=== PATIENT | female | born 1960 | race Caucasian/White ===

== ENCOUNTER → 2018-06-13 | Outpatient (CLI) | payer OTHER ==
[~2018-06-13] MED LIST: COLACE 100100 MG/CAP PO; LEVAQUIN 5500 MG/TA1 PO; NORVASC2.5 MG; PERCOCET 325 MG1 TA2 PO; ROXICODONE 55 MG/TAB PO; ZESTRIL 10MG10 MG PO
== END ==
LOC: COL.VAS 13:07
DX: Z13.6 Encounter for screening for cardiovascular disorders (principal); M79.605 Pain in left leg; N20.0 Calculus of kidney; Z96.0 Presence of urogenital implants

== ENCOUNTER → 2018-08-28 | Outpatient (CLI) | payer OTHER | LOC: ZCOL.LAB 13:46 | DX: I82.409 Acute embolism and thrombosis of unspecified deep veins of unspecified lower extremity (principal); R07.89 Other chest pain ==

== ENCOUNTER → 2018-08-28 | Outpatient (CLI) | payer OTHER | LOC: COL.RAD 16:10 | DX: K80.20 Calculus of gallbladder without cholecystitis without obstruction (principal); N28.9 Disorder of kidney and ureter, unspecified; R79.89 Other specified abnormal findings of blood chemistry | CPT/HCPCS: Q9967 ==

== ENCOUNTER 2019-02-06 08:31 | Day surgery (SDC) | payer OTHER ==
[~2019-02-06] VITALS: Ht 162.6 cm; Wt 71.7 kg
[2019-02-06 08:49] VITALS: BP 111/76; PULSE 79; TEMP 97.2
[2019-02-06] MEDS ORDERED: PRINIVIL40 MG PO (08:54)
[2019-02-06] MEDS ORDERED: NEXIUM 40MG40 MG PO (08:54)
[2019-02-06] MEDS ORDERED: MICROZIDE12.5 MG PO (08:55)
[2019-02-06 10:00] VITALS: BP 110/66; PULSE 79; TEMP 97.7
--- NOTE | 2019-02-06 10:00 | NUR ---
The patient arrived back to [facility] at this time. The patient appears drowsy but arouses easily to her name. The patient ambulated from the cart to the recliner in her room with the stand by assistance of two nurses and appeared to tolerate the activity well. Post procedure vital signs were started at this time. Call light is within reach. Will continue to monitor the patient.
[2019-02-06 10:15] VITALS: BP 100/66; PULSE 67
--- NOTE | 2019-02-06 10:15 | NUR ---
The patient appears to be resting quietly in the recliner with her eyes closed at this time. Vital signs appear stable at this time. The patient denies wanting anything to eat or drink at this time. Will continue to monitor the patient.
[2019-02-06 10:35] VITALS: BP 93/60; PULSE 65
--- NOTE | 2019-02-06 10:35 | NUR ---
The patient appears to be resting quietly with her eyes closed at this time. Respirations even and unlabored. Call light is within reach. Will continue to monitor the patient.
[2019-02-06 10:55] VITALS: BP 94/63; PULSE 69
--- NOTE | 2019-02-06 10:55 | NUR ---
The patient appears more alert at this time. The patient requests to try some water at this time. The patient's vital signs continue to appear stable. The patient's sister was called to come back to pick the patient up for discharge. Will continue to monitor the patient.
[2019-02-06 11:15] VITALS: BP 106/67; PULSE 70
--- NOTE | 2019-02-06 11:20 | NUR ---
The patient has finished her water and voices a desire to be disharged home. Discharge instructions were reviewed with the patient at this time and questions were answered. The patient's IV to her right forearm was removed and a pressure dressing was applied to the site. The nurse instructed the patient to get dressed and notify the staff when she is ready to be escorted out.
--- NOTE | 2019-02-06 11:24 | NUR ---
The patient ambulated out to a private vehicle using a steady gait escorted by CLARISSA Diaz. The patient's belongings and discharge paperwork were sent with her. The patient's sister is present to drive her home.
== END 2019-02-06 11:24 | disposition home or self-care (01) ==
LOC: SDCO 08:31
DX: K31.7 Polyp of stomach and duodenum (principal); K29.50 Unspecified chronic gastritis without bleeding; K44.9 Diaphragmatic hernia without obstruction or gangrene; K22.70 Barrett's esophagus without dysplasia; Z79.82 Long term (current) use of aspirin; Z79.899 Other long term (current) drug therapy; Z86.718 Personal history of other venous thrombosis and embolism; Z87.442 Personal history of urinary calculi; Z90.49 Acquired absence of other specified parts of digestive tract; Z80.0 Family history of malignant neoplasm of digestive organs
CPT/HCPCS: J2250; J3010; J7030

== ENCOUNTER 2019-04-10 10:28 | Day surgery (SDC) | payer OTHER ==
[~2019-04-10] VITALS: Ht 162.6 cm; Wt 72.9 kg
[2019-04-10] VITALS (10 sets, daily range): BP systolic 102–149; BP diastolic 53–86; PULSE 66–89; TEMP 97.7–98.1
[~2019-04-10 10:28] MED LIST changes: +MICROZIDE12.5 MG PO; +NEXIUM 40MG40 MG PO; +PRINIVIL40 MG PO
[2019-04-10] MEDS ORDERED: ASPIRIN 81M81 MG/TA2 PO (11:47)
--- NOTE | 2019-04-10 15:57 | NUR ---
PT TO ROOM 322-2 PER BED WITH CORY ROMO PACU GIVING BEDSIDE REPORT @ 1540 PT IS DROWSEY BUT AROUSEABLE. SISTER AT BEDSIDE. VSS, LAP SITES CDI CLOSED WITH SWIFTSET. PT DENIES NEEDS.
--- NOTE | 2019-04-10 16:56 | NUR ---
PT UP TO RECLINER REPOSITIONED FOR COMFORT.
--- NOTE | 2019-04-10 17:54 | NUR ---
PT SITTING UP IN RECLINER, DENIES NEEDS. CLEAR LIQUID TRAY FOR DINNER.
--- NOTE | 2019-04-10 20:15 | NUR ---
Pt up to chair. No distress noted. Pt reports discomfort in abdomen, but denies need for pain medication. Abdomen is soft, but distended. BS audible. Pt is passing flatus, but no BM yet. Lap sites x6 closed with swiftset. Edges well approximated. Lungs clear to auscultation. Respirations even and unlabored. Pt ate most of her CL dinner without difficulty. Helped up to bathroom and ambulated in halls. Gait is steady. No complaints. Pt back to bed. Denies needs at this time. Will continue to monitor.
--- NOTE | 2019-04-10 23:33 | NUR ---
Pt reported pain at HS but refused a pain pill stating "I will call when I'm ready". Pt fell asleep at awoke at 2330 in "excruiating" pain. Upon assessment, pain is writhing, guarding and moaning. She ambulates to the [facility] to void and back to bed with assistance. She is rating her pain 10/10. PRN pain medication given IV due to high level of pain. She is educated that she needs to take medication before pain gets to this level.
--- NOTE | 2019-04-11 00:15 | NUR ---
Pt reports pain relief. Rating pain 3/10.
[2019-04-11 03:42] VITALS: BP 112/63; PULSE 79; TEMP 98.3
--- NOTE | 2019-04-11 03:48 | NUR ---
Pt reports that her pain is starting to increase again. PRN PO pain medication given.
[2019-04-11 04:18] VITALS: BP 111/52
--- NOTE | 2019-04-11 05:45 | NUR ---
Pt resting in bed this AM. Reports that her she has abdominal "discomfort", but the pain has subsided. Pt has been up to the bathroom several times tonight and also ambulated in the halls. Pain kept under control except for initial period of acute pain that was treated with IV pain medication.
[2019-04-11 07:14] LABS: BASO % 0.1 % (0.0-2.0); GRAN # 12.6 (1.4-6.5); GRAN % 87.9 % (42.2-75.2); HEMOGLOBIN 12.1 g/dl (12.5-16.0); LYMPH # 0.9 (1.2-3.4); LYMPH % 6.4 % (20.0-51.0); MEAN CELL VOLUME 92 fl (80.0-100.0); MEAN CORPUSCULAR HEMOGLOBIN 30 pg (27.0-31.0); MEAN CORPUSCULAR HGB CONC 33 g/dl (33.0-37.0); MEAN PLATELET VOLUME 10.2 fl (7.4-10.4); MONO # 0.7 (0.1-0.6); PLATELET COUNT 234 K/mm3 (130-400); REDCELL DISTRIBUTION WIDTH-CV 13.4 % (11.5-14.5)
[2019-04-11 07:21] LABS: HEMATOCRIT 36.9 % (37.0-47.0)
[2019-04-11 07:26] LABS: ALBUMIN 3.7 gm/dL (3.5-5.0); CALCIUM 9.1 mg/dL (8.4-10.2); CREATININE, serum 0.8 (0.52-1.25); PHOSPHOROUS 4.7 mg/dL (2.5-4.5); POTASSIUM 3.8 mmol/L (3.4-5.0)
[2019-04-11 08:28] VITALS: BP 121/64; PULSE 74; TEMP 98.8
--- NOTE | 2019-04-11 09:42 | NUR ---
AM ASSESSMENT COMPLETED. A/O X4. REPORTS MODERATE PAIN ABDOMINAL PAIN WITH ANY MOVEMENT. BS ACTIVE IN ALL QUADRANTS. ALL 6 LAP SITES INTACT WITH DERMABOND. AMBULATED IN HALLWAY X 10 MINUETS WITH STAND BY ASSIST. SEE [facility] FOR MEDICATINS ADMINISTERED.
[2019-04-11] MEDS ORDERED: NEURONTIN100 MG/CAP PO (10:52)
[2019-04-11] MEDS ORDERED: PERCOCET 325 MG1 TA2 PO (10:52)
[2019-04-11] MEDS ORDERED: MOTRIN 600600 MG/TAB PO (10:52)
[2019-04-11] MEDS ORDERED: ZOFRAN ODT4 MG PO (10:53)
[2019-04-11] MEDS ORDERED: COLACE 100100 MG/CAP PO (10:53)
--- NOTE | 2019-04-11 11:09 | NUR ---
DC ORDER RECEIVED FROM DR ACEVEDO. PATIENT AGRREABLE AND EAGER TO LEAVE. TO COMPLETE DC PROCESS. SISTER TO TRANSFER HOME.
[2019-04-11 11:41] VITALS: BP 118/59; PULSE 66; TEMP 98.6
--- NOTE | 2019-04-11 13:53 | NUR ---
PATIENT DC TO HOME @ 1246 ACCOMPANIED BY SISTER OFFICIAL GREETER. PRINTED DC INSTRUCTIONS TO INCLUDE F/U, MEDICATIONS,DIET, AND ACTIVITY. VERBALIZES UNDERSTANDING AND DENIES QUESTIONS OR CONCERNS AFTER REVIEW. PRINTED SCRIPTS FOR ZOFRAN, GAPABENTIN, MOTRIN, AND PERCOCET SENT WITH PATIENT. PATIENT DC FROM [facility] ACCOMPANIED BY [facility] STAFF.
== END 2019-04-11 12:46 ==
LOC: SDCO 10:28 → SURG 10:28 → SDCO 12:45 → SURG 15:30 → SDCO 04-11 12:46
PROVIDERS: Surgery
DX: K22.70 Barrett's esophagus without dysplasia (principal); K44.9 Diaphragmatic hernia without obstruction or gangrene; I10 Essential (primary) hypertension; J45.909 Unspecified asthma, uncomplicated; Z79.899 Other long term (current) drug therapy; Z79.82 Long term (current) use of aspirin; Z86.718 Personal history of other venous thrombosis and embolism; Z87.442 Personal history of urinary calculi
CPT/HCPCS: OP; J0690; J1100; J1170; J1650; J1885; J2405; J2704; J3010; J7120

== ENCOUNTER 2019-10-17 09:11 | Emergency (ER) | payer OTHER ==
[~2019-10-17] VITALS: Ht 162.6 cm; Wt 67.3 kg
[~2019-10-17 09:11] MED LIST changes: +ASPIRIN 81M81 MG/TA2 PO; +MOTRIN 600600 MG/TAB PO; +NEURONTIN100 MG/CAP PO; +ZOFRAN ODT4 MG PO
[2019-10-17 09:18] VITALS: TEMP 98.8
[2019-10-17 09:53] LABS: BASO % 0.6 % (0.0-2.0); EOS # 0.2 (0.0-0.7); EOS % 2.9 % (0-4.0); GRAN # 3.2 (1.4-6.5); GRAN % 58.5 % (42.2-75.2); HEMATOCRIT 42.4 % (37.0-47.0); HEMOGLOBIN 13.9 g/dl (12.5-16.0); LYMPH # 1.8 (1.2-3.4); LYMPH % 32.6 % (20.0-51.0); MEAN CELL VOLUME 92 fl (80.0-100.0); MEAN CORPUSCULAR HEMOGLOBIN 30 pg (27.0-31.0); MEAN CORPUSCULAR HGB CONC 33 g/dl (33.0-37.0); MEAN PLATELET VOLUME 9.6 fl (7.4-10.4); MONO # 0.3 (0.1-0.6); MONO % 5.2 % (1.7-9.3); PLATELET COUNT 231 K/mm3 (130-400); RED BLOOD COUNT 4.62 M/mm3 (4.10-5.30); REDCELL DISTRIBUTION WIDTH-CV 12.6 % (11.5-14.5)
[2019-10-17 09:58] LABS: ALBUMIN 4.5 gm/dL (3.5-5.0); BILIRUBIN,TOTAL 0.4 mg/dL (0.0-1.0); CALCIUM 9.8 mg/dL (8.4-10.2); CREATININE, serum 0.75 (0.52-1.25); POTASSIUM 4.2 mmol/L (3.4-5.0); TOTAL PROTEIN 7.8 gm/dL (6.4-8.2)
[2019-10-17 10:19] LABS: COLLECTION METHOD CLEAN CATCH
[2019-10-17 10:29] LABS: PH 7 (5-8); SQUAMOUS EPITHELIAL None Seen /hpf; URINE APPEARANCE Clear; URINE BACTERIA Rare /hpf; URINE BILIRUBIN Negative (NEGATIVE); URINE BLOOD Negative (NEGATIVE); URINE COLOR Straw; URINE GLUCOSE Negative (NEGATIVE); URINE KETONE Negative (NEGATIVE); URINE LEUKOCYTE ESTERASE Negative (NEGATIVE); URINE NITRATE Negative (NEGATIVE); URINE PROTEIN(semi-quant) Negative (NEGATIVE); URINE RBC 0-2 /hpf; URINE UROBILINOGEN Negative (NEGATIVE)
[2019-10-17] MEDS ORDERED: NAPROSYN 2250 MG/TAB PO (11:31)
[2019-10-17] MEDS ORDERED: NORCO 325 MG-51 TAB PO (11:31)
[2019-10-17 12:38] VITALS: BP 104/63; PULSE 65
== END 2019-10-17 12:39 | disposition home or self-care (01) ==
LOC: COL.ER 09:11
PROVIDERS: Emergency Medicine
DX: D25.9 Leiomyoma of uterus, unspecified (principal); K82.8 Other specified diseases of gallbladder; Z79.82 Long term (current) use of aspirin
CPT/HCPCS: J1170; J1885; J2405; J7030; Q9967

== ENCOUNTER 2019-10-31 05:23 | Inpatient (IN) | payer OTHER ==
[2019-10-31] VITALS (10 sets, daily range): BP systolic 123–146; BP diastolic 63–78; PULSE 65–84; TEMP 97.4–99.3
[~2019-10-31] VITALS: Ht 162.6 cm; Wt 68.2 kg
[~2019-10-31 05:23] MED LIST changes: +NAPROSYN 2250 MG/TAB PO; +NORCO 325 MG-51 TAB PO
--- NOTE | 2019-10-31 11:00 | NUR ---
PATIENT ADMITED INTO ROOM 350 POST OP OPEN JULISA. RIGHT ABD INCISION IS CD&I AND CLOSED WITH GARTH. ABD LAP SITES X2 CD&I WITH SWIFTSET. DILAUDID VEGETABLE INSPECTOR INPLACE FOR PAIN MANAGEMENT. PATIENT HAVING MOD ABD PAIN BUT DROWSY. VSS. ABD IS DISTENDED, SOFT AND WITH POSITIVE BOWL SOUNDS. NO C/O N/V. IV FLUIDS INFUSING VIA PUMP INTO LEFT WRIST. HEAD TO TOE ASSESSMENT WNL. CALL LIGHT IN REACH.
--- NOTE | 2019-10-31 20:30 | NUR ---
PT ASSISTED TO BATHROOM TO VOID. HAD DIFFICULTY GETTING OUT OF BED, WAS ABLE TO VOID 400CC OF [place] URINE. BACK TO BED WITH MINIMAL ASSIST. REPORTS MILD NAUSEA WITH MOVEMENT. ABDOMEN DISTENDED, HYPOACTIVE BOWEL SOUNDS. DRSG TO RIGHT ABD D/I. HAS KNITTER OPERATOR DILAUDID FOR PAIN CONTROL, PCO2=46. IV SITE TO LEFT WRIST WITHOUT REDNESS OR SWELLING. T=99.2.
[2019-11-01] VITALS (15 sets, daily range): BP systolic 110–139; BP diastolic 59–84; PULSE 67–86; TEMP 98.1–99.3
--- NOTE | 2019-11-01 | NUR ---
Using GLAZE CARRIER as needed for pain, rates pain 7/10, encouraged to use medication before pain is excessive, verbalized understanding.
--- NOTE | 2019-11-01 02:00 | NUR ---
Pt resting quietly. Denies need to use the bathroom at this time.
--- NOTE | 2019-11-01 04:00 | NUR ---
Assisted to bathroom, transfers better out of bed than previously. Voids and back to bed. Is NPO for ERCP this AM.
--- NOTE | 2019-11-01 06:11 | NUR ---
Consent signed for ERCP.
--- NOTE | 2019-11-01 09:48 | NUR ---
PATIENT UP TO THE BATHROOM VOIDED & PATIENT TAKEN TO OR WITH CEM TRANSPORTER.
--- NOTE | 2019-11-01 12:21 | NUR ---
Patient resting in bed. Pain elevated since return from procedure. Patient reports her pain is in her abdomen & radiating into her back. Iv dilaudid singer and unloader hooked back up, did give patient a bolus dose to assist with pain management. Vss on O2. Scds ble. Right upper abdomen dressing CDI.
--- NOTE | 2019-11-01 13:19 | NUR ---
ROSINA met with the patient to complete initial intake. The patient lives in [place] with her sister, Sabrina. The patient denies DME use and is independent with ADLs. The patient's PCP is Dr. Rodriguez and patient receives medications from [facility] in [place]. The patient does not have advanced directives in the EMR but was interested in DPOA-HC form. Form provided. The patient plans to return home at discharge with Sabrina providing transportation. There are no additional needs at this time.
--- NOTE | 2019-11-01 19:14 | NUR ---
Patient resting in bed. She has been up to the bathroom & voided. Vss on room air. Pain better managed at this time. She has had nausea, Zofran Prn. Minimal interest in food. She has only had a jello & sips of juice. Incisons site open to air, franci intact. REport to Jose ROMO
--- NOTE | 2019-11-01 21:40 | NUR ---
Pt. laying in bed at this time. Pt. is A&OX3, assessment complete. IV to lt. wrist patent, IV fluids and CLASSIFIED ADVERTISING MANAGER infusing per orders. Rt. abd. incsion- franci intact, edges well approximated. Abd. lap sites x2- edges well approximated. Pt. rates pain at a 4 on pain scale, pt. reports this is a tolerable pain level for her. Pt. denies further needs, call light within reach.
[2019-11-02 00:08] VITALS: BP 143/72; PULSE 96; TEMP 98.7
[2019-11-02 05:21] VITALS: BP 141/80; PULSE 97; TEMP 98.8
[2019-11-02 06:05] LABS: BASO % 0.4 % (0.0-2.0); EOS % 0.1 % (0-4.0); GRAN % 82.6 % (42.2-75.2); HEMOGLOBIN 11.8 g/dl (12.5-16.0); LYMPH # 0.9 (1.2-3.4); LYMPH % 10.1 % (20.0-51.0); MEAN CELL VOLUME 94 fl (80.0-100.0); MEAN CORPUSCULAR HEMOGLOBIN 30 pg (27.0-31.0); MEAN CORPUSCULAR HGB CONC 32 g/dl (33.0-37.0); MEAN PLATELET VOLUME 10.3 fl (7.4-10.4); MONO # 0.6 (0.1-0.6); MONO % 6.6 % (1.7-9.3); PLATELET COUNT 174 K/mm3 (130-400); RED BLOOD COUNT 3.89 M/mm3 (4.10-5.30); REDCELL DISTRIBUTION WIDTH-CV 13.1 % (11.5-14.5)
[2019-11-02 06:06] LABS: HEMATOCRIT 36.5 % (37.0-47.0)
[2019-11-02 06:17] LABS: ALBUMIN 3.6 gm/dL (3.5-5.0); BILIRUBIN,TOTAL 0.6 mg/dL (0.0-1.0); CALCIUM 9.1 mg/dL (8.4-10.2); CREATININE, serum 0.67 (0.52-1.25); TOTAL PROTEIN 6.8 gm/dL (6.4-8.2)
[2019-11-02 07:41] VITALS: BP 151/73; PULSE 96; TEMP 98.9
--- NOTE | 2019-11-02 11:47 | NUR ---
Per Dr. Rogers the patient could possible discharge over the weekend. Per nurse regarding patient; hold off on PT but the patient is to get up and walk around with staff. Will continue to monitor.
[2019-11-02 11:48] VITALS: BP 128/66; PULSE 94; TEMP 98.7
--- NOTE | 2019-11-02 12:16 | NUR ---
Follow up visit from the senior financial reporting accountant. No needs right now.
[2019-11-02 16:00] VITALS: BP 128/68; PULSE 89; TEMP 99.1
--- NOTE | 2019-11-02 18:00 | NUR ---
Patient has been sitting up in the chair most the day. Minimal complaints of nausea. She stated her nausea picks up when she has more pain. Offered to give zofran for nausea but did not want it. Her SLIVER LAP MACHINE TENDER was discontinued. She is tolerating pain pills very well. She is tolerating low fiber diet without nausea. She was able to walk in the hallways today. She continues to have pain to her right side with movements and deep breaths. No other changes at this time. Call light within reach.
[2019-11-02 19:37] VITALS: BP 127/67; PULSE 92; TEMP 99.6
--- NOTE | 2019-11-02 19:45 | NUR ---
Report received, assumed care for overnight cashier. Assessment complete. VS stable. A&Ox3-drowsy. Sitting up in chair. Has ambulated in hallway. States +flatus. Denies nausea/pain/shortness of breath. Tolerating diet. INT to left wrist flushes without difficulty. Right upper quadrant incision-farnci intact-open to air. No redness/swelling/drainage noted. Lap site x2 edges well approximated. Voiding without difficulty. Encouraged to call for questions/concerns. Call light in reach. Will monitor.
--- NOTE | 2019-11-02 21:00 | NUR ---
Called with c/o pain to right upper quadrant to back-rating 5/10 on pain scale-described as intermittent burning-ache. Tramadol given per dr order. Will monitor.
[2019-11-03 00:20] VITALS: BP 135/78; PULSE 65; TEMP 98.4
--- NOTE | 2019-11-03 01:00 | NUR ---
Up to bathroom at this time. +flatus. Voided without difficulty. Will monitor.
[2019-11-03 04:35] VITALS: BP 110/63; PULSE 75; TEMP 98.7
[2019-11-03 07:22] VITALS: BP 118/74; PULSE 96; TEMP 98.8
[2019-11-03 11:30] VITALS: BP 109/66; PULSE 105; TEMP 99.1
[2019-11-03 16:11] VITALS: BP 101/61; PULSE 105; TEMP 100
--- NOTE | 2019-11-03 18:12 | NUR ---
Patient sat up in bedside recliner for most of the day. Patient remains alert and oriented, answers questions appropriately. Patient has reported pain to be well controlled during most of the day and declined pain medications, however when patient requested PRN pain medicaiton this evening she stated that her pain was severe and she believed she had waited too long to take it. Offered patient two norco per ranged order, patient declined. Incision remains well approximated, franci intact. Patient denies further needs, call light within reach.
[2019-11-03 20:00] VITALS: BP 110/62; PULSE 91; TEMP 99.4
--- NOTE | 2019-11-03 20:00 | NUR ---
Report received, asssumed care for manager agriculture. Assessment complete. VS stable. A&Ox3. Sitting up in chair watching TV. C/O pain to right upper quadrant/back described as throbbing-rating 6/10. Tramadol 100mg given per dr order. Incision to right upper quadrant-franci intact-open to air with no s/s of infection noted. Tolerating diet. Voiding without difficulty. +flatus. Denies nausea/shortness of breath. Has ambulated in the halls. INT to Left wrist flushes without difficulty. Plan of care discussed for this shift to include pain meds/ambulation/calling for needs. Verbalizes understanding. Call light in reach. Will monitor.
[2019-11-04] VITALS: BP 101/59; PULSE 88; TEMP 98.3
--- NOTE | 2019-11-04 | NUR ---
Resting in bed eyes closed. VS complete and WNL. Denies pain/nausea/shortness of breath. Call light in reach. Will monitor.
[2019-11-04 04:00] VITALS: BP 107/64; PULSE 83; TEMP 98.6
--- NOTE | 2019-11-04 06:00 | NUR ---
Rested well this shift. Pain adequately controlled with Tramadol. States the Tramadol works better for her with less side effects. No nausea/shortness of breath. Voiding without difficulty. Tolerating PO. +flatus. Denies needs. Call light in reach. Will monitor.
[2019-11-04 06:11] LABS: BASO % 0.5 % (0.0-2.0); EOS # 0.1 (0.0-0.7); EOS % 1.5 % (0-4.0); GRAN # 5.4 (1.4-6.5); GRAN % 68.7 % (42.2-75.2); HEMOGLOBIN 11.6 g/dl (12.5-16.0); LYMPH # 1.6 (1.2-3.4); LYMPH % 20.2 % (20.0-51.0); MEAN CELL VOLUME 90 fl (80.0-100.0); MEAN CORPUSCULAR HEMOGLOBIN 30 pg (27.0-31.0); MEAN CORPUSCULAR HGB CONC 33 g/dl (33.0-37.0); MEAN PLATELET VOLUME 9.7 fl (7.4-10.4); MONO # 0.7 (0.1-0.6); MONO % 8.8 % (1.7-9.3); PLATELET COUNT 187 K/mm3 (130-400); RED BLOOD COUNT 3.85 M/mm3 (4.10-5.30); REDCELL DISTRIBUTION WIDTH-CV 12.4 % (11.5-14.5)
[2019-11-04 06:16] LABS: HEMATOCRIT 34.7 % (37.0-47.0)
[2019-11-04 06:22] LABS: ALBUMIN 3.6 gm/dL (3.5-5.0); BILIRUBIN,TOTAL 0.7 mg/dL (0.0-1.0); CALCIUM 9.7 mg/dL (8.4-10.2); CREATININE, serum 0.79 (0.52-1.25); POTASSIUM 3.9 mmol/L (3.4-5.0); TOTAL PROTEIN 6.9 gm/dL (6.4-8.2)
[2019-11-04 07:25] VITALS: BP 109/65; PULSE 91; TEMP 98.2
[2019-11-04] MEDS ORDERED: ULTRAM 50MG TAB50 MG PO (10:01)
[2019-11-04] MEDS ORDERED: ZOFRAN 4MG T4 MG/TAB PO (10:01)
[2019-11-04 11:31] VITALS: BP 105/61; PULSE 88; TEMP 99
--- NOTE | 2019-11-04 12:31 | NUR ---
Patient ready for discharge. Dr. Rogers rounded. Orders obtained. Patient showered prior to discharge. Patient nausea has subsided that she had this am. She did not want pain medication prior to discharge, but script for zofran & ultram sent with patient and medication list and medication safety reviewed. Insicion care & follow up appt for reviewed. We discussed low fat diet & activity restrictions. Patient denies questions or concerns. Patient wheeled out with all belongings, he sister taking her home.
== END 2019-11-04 12:36 | disposition home or self-care (01) | DRG 415 ==
LOC: SURG 05:23 → SDCO 05:23 → SURG 11:00 → SDCO 11-01 10:14 → SURG 11-01 10:15
PROVIDERS: Internal Medicine Gastroenterology; ADMIT Surgery
PROC: 0FJ44ZZ Inspection of Gallbladder, Percutaneous Endoscopic Approach (ICD-10-PCS; 2019-11-01)
PROC: BF121ZZ Fluoroscopy of Gallbladder using Low Osmolar Contrast (ICD-10-PCS; 2019-11-01)
PROC: 0FCD8ZZ Extirpation of Matter from Pancreatic Duct, Via Natural or Artificial Opening Endoscopic (ICD-10-PCS; 2019-11-01)
PROC: 0FT40ZZ Resection of Gallbladder, Open Approach (ICD-10-PCS; principal; 2019-11-01 09:00)
DX: K80.60 Calculus of gallbladder and bile duct with cholecystitis, unspecified, without obstruction (principal); K83.3 Fistula of bile duct; K83.8 Other specified diseases of biliary tract; I10 Essential (primary) hypertension; K21.9 Gastro-esophageal reflux disease without esophagitis; Z87.442 Personal history of urinary calculi; Z87.898 Personal history of other specified conditions; Z86.718 Personal history of other venous thrombosis and embolism; Z79.01 Long term (current) use of anticoagulants; Z90.89 Acquired absence of other organs; Z98.890 Other specified postprocedural states
CPT/HCPCS: OP; A9284; C1769; J0330; J0690; J1100; J1170; J1650; J1885; J2405; J2550; J2704; J3010; J7030; J7120; Q9967

== ENCOUNTER → 2019-12-06 | Outpatient (CLI) | payer OTHER ==
[~2019-12-06] MED LIST changes: +ULTRAM 50MG TAB50 MG PO; +ZOFRAN 4MG T4 MG/TAB PO
== END ==
LOC: COL.RAD 12-05 10:30
DX: K83.8 Other specified diseases of biliary tract (principal); Z90.49 Acquired absence of other specified parts of digestive tract

== ENCOUNTER → 2020-07-24 | Outpatient (CLI) | payer OTHER | LOC: COL.RAD 11:19 | DX: E04.2 Nontoxic multinodular goiter (principal) ==

== ENCOUNTER → 2020-08-11 | Outpatient (CLI) | payer OTHER ==
[~2020-08-11] MED LIST changes: +ZESTRIL 20MG TA20 MG PO
[2020-08-11 09:58] VITALS: BP 123/79; PULSE 74
[2020-08-11 11:45] VITALS: BP 141/89; PULSE 85
== END ==
LOC: COL.RAD 09:39
DX: E07.9 Disorder of thyroid, unspecified (principal); R22.1 Localized swelling, mass and lump, neck

== ENCOUNTER 2020-09-10 05:17 | Day surgery (SDC) | payer OTHER ==
[~2020-09-10] VITALS: Ht 162.6 cm; Wt 68.1 kg
--- NOTE | 2020-09-10 07:15 | NUR ---
The patient was taken via cart to the operating room at this time. The patient's chart was sent with her. The patient's belongings were taken to the recovery room and will be transferred with the patient to the 3rd floor post operatively.
[2020-09-10 20:00] VITALS: BP 108/58; PULSE 91; TEMP 98.5
--- NOTE | 2020-09-10 20:10 | NUR ---
Report received, assumed care for telehealth director. Assessment complete. PCT notified this nurse of low blood pressure. Pt states she feels a little dizzy-states she took some pain medications at 1730 nad started feeling "off" about an hour later. Has not tolerated much PO. States she has voided x2-small amounts. IV fluids restarted-LR@75ml/hr to left forearm IV. Will reassess. Call light in reach. Will monitor.
--- NOTE | 2020-09-10 21:00 | NUR ---
Recheck of vitals-BP 118/56. States she feels better now that she did earlier. Denies pain/nausea/shortness of breath. States she isnt dizzy anymore. States she is very tired. Denies current needs. Call light in reach. Will monitor.
[2020-09-10 23:21] VITALS: BP 116/63; PULSE 78; TEMP 97.7
[2020-09-11 03:43] VITALS: BP 121/66; PULSE 82; TEMP 98.3
--- NOTE | 2020-09-11 04:58 | NUR ---
Has rested well later this shift. IV fluids continue to run LR@75mls/hr. Denies pain/nausea/shortness of breath. Denies any more episodes of lightheadedness/dizziness. Has remained NPO since midnight. Voiding without difficulty. Dressing to neck remains CDI. Denies current needs. Call light in reach. Will monitor.
--- NOTE | 2020-09-11 05:39 | NUR ---
The patient ambulated back to [facility] independently using a steady gait. Vital signs obtained. Confirmed patient's home medications. The patient was instructed to get changed and notify the staff when she is ready to review her consent.
--- NOTE | 2020-09-11 06:08 | NUR ---
0608 Pre op medications were administered as ordered. Consent was signed. 0613 20G IV was started in the patient's left forearm with one stick, LR infusing without difficulty. 0618 Assessment was completed. Heart Reg. Lungs clear. Bowel sounds audible. Call light is within reach. The patient denies any further needs at this time. Will continue to monitor the patient.
[2020-09-11 08:04] VITALS: BP 117/71; PULSE 71; TEMP 98.2
--- NOTE | 2020-09-11 09:45 | NUR ---
PATIENT SHIFT ASSESSMENT COMPLETED AT THIS TIME. PATIENT DENIES PAIN. AM MEDICATIONS ADMINISTERED BY STUDENT NURSE. PATIENT STATES THAT IT FEELS LIKE THERE IS A LUMP IN HER THROAT, BUT IS ABLE TO TOLERATING PO INTAKE. NECK DRESSING IS CD&I. PATIENT DENIES ANY NEEDS AT THIS TIME.
--- NOTE | 2020-09-11 11:26 | NUR ---
SW met with the patient to discuss discharge plan. The patient lives in [place] with her sister, Sabrina (ph#[phone]). She reports independence with ADLs and does not have any DME. The patient's PCP is Dr. Adele Rodriguez and she reveives her medications from [facility] in [place]. She reports no difficulties obtaining her meds. The patient does not have a DPOA-HC and she was not interested in completing one at this time. The patienet plans to return home with her sister upon discharge. No additional needs at this time.
[2020-09-11 12:00] VITALS: BP 116/66; PULSE 86; TEMP 98.7
[2020-09-11] MEDS ORDERED: NORCO 325 MG-51 TAB PO (12:09)
--- NOTE | 2020-09-11 12:59 | NUR ---
PATIENT DISCHARGE INSTRUCTIONS REVIEWED WITH PATIENT. QUESTIONS SOUGHT AND ANSWERED. PATIENT PERSONAL BELONGINGS GATHERED. PATIENT AWAITING RIDE FOR DISCHARGE.
--- NOTE | 2020-09-11 13:04 | NUR ---
First visit from the senior environmental practice leader. No needs right now.
--- NOTE | 2020-09-11 13:15 | NUR ---
PATIENT AMBULATED WITH SURGICAL STAFF TO PERSONAL VEHICLE. PATIENT DISCHARGED.
[2020-09-11 19:12] VITALS: BP 125/77; PULSE 79; TEMP 97.9
[2020-09-11] MEDS ORDERED: NEXIUM 40MG40 MG PO (19:19)
[2020-09-12 09:18] VITALS: BP 152/73; PULSE 64; TEMP 97.6
== END 2020-09-11 13:15 | disposition home or self-care (01) ==
LOC: SURG 05:17 → SDCO 05:17 → SURG 20:00 → SDCO 09-11 13:15
DX: C73 Malignant neoplasm of thyroid gland (principal); I10 Essential (primary) hypertension; G47.00 Insomnia, unspecified; I82.409 Acute embolism and thrombosis of unspecified deep veins of unspecified lower extremity; K21.9 Gastro-esophageal reflux disease without esophagitis; Z98.890 Other specified postprocedural states; Z79.82 Long term (current) use of aspirin; Z79.899 Other long term (current) drug therapy; Z20.822 Contact with and (suspected) exposure to COVID-19
CPT/HCPCS: OP; J0690; J1100; J1170; J2370; J2405; J2704; J3010; J7120

== ENCOUNTER → 2021-03-17 | Outpatient (CLI) | payer OTHER ==
[~2021-03-17] MED LIST changes: +PRINIVIL20 MG PO
== END ==
LOC: COL.RAD 07:11
DX: R10.12 Left upper quadrant pain (principal); R07.89 Other chest pain; Z90.49 Acquired absence of other specified parts of digestive tract

== ENCOUNTER → 2021-03-18 | Outpatient (CLI) | payer OTHER | LOC: MC.RAD 12:40 | DX: N63.20 Unspecified lump in the left breast, unspecified quadrant (principal); N63.10 Unspecified lump in the right breast, unspecified quadrant ==

== ENCOUNTER → 2021-03-25 | Outpatient (CLI) | payer OTHER | LOC: MC.RAD 08:00 | DX: C50.811 Malignant neoplasm of overlapping sites of right female breast (principal); C50.812 Malignant neoplasm of overlapping sites of left female breast; R92.0 Mammographic microcalcification found on diagnostic imaging of breast | CPT/HCPCS: A4648 ==

== ENCOUNTER 2021-04-29 06:30 | Day surgery (SDC) | payer OTHER ==
[2021-04-29] VITALS (9 sets, daily range): BP systolic 94–132; BP diastolic 47–73; PULSE 67–83; TEMP 98.1–98.6
[~2021-04-29] VITALS: Wt 65.1 kg
[~2021-04-29 06:30] MED LIST changes: -PRINIVIL20 MG PO
--- NOTE | 2021-04-29 07:30 | NUR ---
Patient received from radiology accompanied by Cathleen. Patient oriented to room. Voices understanding of surgery and consent signed. INT needle started left hand and flushes with normal saline. Resting on cart reading book and awaits return to radiology.
[2021-04-29] MEDS ORDERED: PRINIVIL20 MG PO (07:44)
[2021-04-29] MEDS ORDERED: NEXIUM 40MG40 MG PO (07:45)
--- NOTE | 2021-04-29 11:39 | NUR ---
Patient has been resting and has not offered any complaints. Taken back to radiology per wheelchair by
--- NOTE | 2021-04-29 12:29 | NUR ---
Patient returns to room 7 per wheelchair from radiology. IV fluids connected to INT site. Readied for surgery.
--- NOTE | 2021-04-29 12:37 | NUR ---
Patient taken to the PACU per cart to have block placed prior to surgery.
--- NOTE | 2021-04-29 18:14 | NUR ---
PATIENT UP TO [facility] 349 AT 1750. PATIENT IS ALERT AND ORIENTED X4 BUT DROWSY. PATIENT HAD BILATERAL MASECTOMY SITE IS COVERED WITH GAUZE AND TAPE. PATIENT HAS 2 JUAN DRAINS LABELED A AND B. PATIENT HAS IV TO LEFT HAND. PATIENT HAS SCD'S ON BILATERAL LOWER EXTREMITIES. PATIENT ON 2L O2 VIA NASAL CANNULA. PATIENT RATING PAIN A 5. PATIENT IS SLEEPING IN BED OFF AN DON. FRIEND LAVINIA TO BE AT BEDSIDE. PATIENT DENIES FURTHER NEEDS AT THIS TIME. CALL LIGHT WITHIN REACH.
--- NOTE | 2021-04-29 20:30 | NUR ---
Pt. sitting up in bed at this time. Pt. is A&OX3, assessment complete. INT to lt. hand patent. Pt. denies pain. Dressing to bilateral chest CDI. JUAN drains x2 with bloody drainage noted. See I&O for amounts. Pt. denies further needs, call light within reach.
[2021-04-30 00:28] VITALS: BP 102/56; PULSE 65; TEMP 98.3
[2021-04-30 04:59] VITALS: BP 108/71; PULSE 77; TEMP 98
[2021-04-30] MEDS ORDERED: NORCO 325 MG-51 TAB PO (07:53)
[2021-04-30 08:14] VITALS: BP 118/56; PULSE 63; TEMP 98.7
--- NOTE | 2021-04-30 09:37 | NUR ---
Patient alert and oriented, answers questions appropriately. See assessment. Bilateral breast incisions with dressing CDI. JUAN drain to bilateral breast, compressed, serosanguinous drainage noted. Post op exercises reviewed with patient. No c/o at this time.
--- NOTE | 2021-04-30 10:17 | NUR ---
ROSINA met with the patient to discuss discharge plan. The patient lives in [place] with her sister, Sabrina (c.ph#[phone], h.ph#[phone]). She reports independence with ADLs and does not have any DME. The patient's PCP is Dr. Adele Rodriguez and she receives her medications from [facility] in . She reports no difficulties obtaining her meds. The patient does not have a DPOA-HC and she was not interested in completing one at this time. The patient plans to return home with her sister upon discharge. No additional needs at this time. *Discharge plan: home with sister*
[2021-04-30 12:19] VITALS: BP 130/58; PULSE 74; TEMP 98.9
--- NOTE | 2021-04-30 13:13 | NUR ---
First visit from the wood borer. No needs right now.
--- NOTE | 2021-04-30 19:01 | NUR ---
Discharge instructions reviewed with patient and friend, verbalized understanding. Discharged via wheelchair to auto/home with family at 1545.
== END 2021-04-30 15:45 | disposition home or self-care (01) ==
LOC: SDCO 06:30 → SURG 06:30 → SDCO 07:00 → SURG 17:55 → SDCO 04-30 15:45
DX: C50.411 Malignant neoplasm of upper-outer quadrant of right female breast (principal); C50.412 Malignant neoplasm of upper-outer quadrant of left female breast; Z17.1 Estrogen receptor negative status [ER-]; I10 Essential (primary) hypertension; K44.9 Diaphragmatic hernia without obstruction or gangrene; K22.70 Barrett's esophagus without dysplasia; K21.9 Gastro-esophageal reflux disease without esophagitis; Z20.822 Contact with and (suspected) exposure to COVID-19; Z79.82 Long term (current) use of aspirin; Z86.718 Personal history of other venous thrombosis and embolism; Z79.899 Other long term (current) drug therapy; Z79.01 Long term (current) use of anticoagulants
CPT/HCPCS: OP; A9541; J0690; J1100; J1885; J2250; J2405; J2704; J2795; J3010; J7120

== ENCOUNTER → 2021-09-25 | Outpatient (CLI) | payer OTHER ==
[~2021-09-25] MED LIST changes: +PRINIVIL20 MG PO
== END ==
LOC: COL.RAD 10:07
DX: C50.412 Malignant neoplasm of upper-outer quadrant of left female breast (principal); R07.9 Chest pain, unspecified; R06.00 Dyspnea, unspecified; R05.9 Cough, unspecified
CPT/HCPCS: Q9967